=== PATIENT | male | born 1975 | race Two or more races ===

== ENCOUNTER 2017-10-24 18:23 | Emergency (ER) | payer SELFPAY ==
[~2017-10-24] VITALS: Ht 180.3 cm; Wt 77.1 kg
--- NOTE | 2017-10-24 19:11 | NUR ---
CALLED IN [place], NO RESPONSE
[2017-10-24 19:20] VITALS: BP 156/101
[2017-10-24] MEDS ORDERED: ONDANSETRON 4 MG TAB.RAPDIS ONE (20:05)
[2017-10-24] MEDS ORDERED: HYDROCODONE/APAP 10/325MG 1 EA TABLET ONE (20:05)
--- NOTE | 2017-10-24 20:11 | NUR ---
RADIOLOGY AT BEDSIDE FOR XRAY
[2017-10-24] MEDS: ONDANSETRON 4 MG TAB.RAPDIS PO ONE (20:24)
[2017-10-24] MEDS: HYDROCODONE/APAP 10/325MG 1 EA TABLET PO ONE (20:24)
== END 2017-10-24 20:59 | disposition home or self-care (01) ==
LOC: ER 18:39
DX: S52.022A Displaced fracture of olecranon process without intraarticular extension of left ulna, initial encounter for closed fracture (principal); S42.022A Displaced fracture of shaft of left clavicle, initial encounter for closed fracture; S80.211A Abrasion, right knee, initial encounter; V19.9XXA Pedal cyclist (driver) (passenger) injured in unspecified traffic accident, initial encounter; Y93.I9 Activity, other involving external motion; Y92.89 Other specified places as the place of occurrence of the external cause; Y99.8 Other external cause status
CPT/HCPCS: 71100-TC; 73000-TC; 73030-TC; 73060-TC; 73080-TC; A4606; Q0162; Z7610